=== PATIENT | female | born 1985 | race Caucasian/White ===

== ENCOUNTER 2017-10-29 20:13 | Emergency (ER) | payer OTHER ==
[~2017-10-29] VITALS: Ht 162.6 cm; Wt 63.5 kg
[~2017-10-29 20:13] MED LIST: BIRTH CONTROL PILLS; CEPH500 PO; HYDACE5 PO; OXYACE5T PO; PROM25 PO; Percocet 5-3251 EACH PO; SUCR1 PO; SULTRIDS PO; Sudogest60 MG PO; Veetids 500500 MG PO; Zofran Odt8 MG SL
[2017-10-29 21:15] LABS: BASOPHILS ABSOLUTE AUTO 0.05 K/mm3 (0.00-0.23); BASOPHILS PERCENT AUTO 1 % (0-2); EOSINOPHILS ABSOLUTE AUTO 0.08 K/mm3 (0.00-0.68); EOSINOPHILS PERCENT AUTO 1 % (0-6); Hematocrit 45.7 % (33.0-51.0); Hemoglobin 15.5 g/dL (11.5-16.0); IMMATURE GRAN ABSOLUTE AUTO 0.02 K/mm3 (0.00-0.10); IMMATURE GRAN PERCENT AUTO 0 % (0-1); LYMPHOCYTES ABSOLUTE AUTO 2.11 K/mm3 (0.84-5.20); LYMPHOCYTES PERCENT AUTO 22 % (21-46); MONOCYTES PERCENT AUTO 4 % (4-13); Mean Corpuscular HGB 31.6 pg (26.0-34.0); Mean Corpuscular HGB Conc 33.9 g/dL (31.5-36.5); Mean Corpuscular Volume 93 fL (80-100); Mean Platelet Volume 10.3 fL (9.1-12.4); NEUTROPHILS ABSOLUTE AUTO 7.15 K/mm3 (1.96-9.15); NEUTROPHILS PERCENT AUTO 73 % (41-73); Platelet Count 289 K/mm3 (150-400); RDW Coefficient Variation 12.6 % (11.7-14.2); RDW Standard Deviation 43.3 fL (35.1-46.3); Red Blood Cell Count 4.91 M/mm3 (3.80-5.20); White Blood Cell Count 9.81 K/mm3 (4.00-11.30)
[2017-10-29 21:50] LABS: Alanine Aminotransfer (ALT/SGP 19 U/L (12-78); Albumin, Blood 4.3 g/dL (3.4-5.0); Albumin/Globulin Ratio 1.2 (0.8-1.8); Alk Phos 64 U/L (50-136); Anion Gap 7 mmol/L (6-16); Aspartate Aminotrans (AST/SGOT 10 U/L (12-37); Bilirubin, Total 0.2 mg/dL (0.1-1.0); Blood Urea Nitrogen 13 mg/dL (8-24); Bun/Creatinine Ratio 16.9 (12.0-20.0); CO2, Blood 27 mmol/L (21-32); Calcium, Blood 9.5 mg/dL (8.5-10.1); Chloride, Blood 105 mmol/L (98-108); Creatinine, Blood 0.77 mg/dL (0.40-1.00); Globulin, Blood 3.7 g/dL (2.2-4.0); Glomerular Filtration Rate >60 (60-); Glucose, Blood 88 mg/dL (70-99); Potassium, Blood 3.7 mmol/L (3.5-5.5); Sodium, Blood 139 mmol/L (136-145)
[2017-10-29 23:15] LABS: Source, Urine Clean Catch
[2017-10-29 23:21] LABS: Bilirubin, Urine Neg (Neg); Blood, Urine Neg (Neg); Glucose Qualitative, Urine Neg (Neg); Ketones, Urine 2+ (Neg); Leukocyte Esterase, Urine Neg (Neg); Nitrite, Urine Neg (Neg); Protein, Urine Neg (Neg); Urobilinogen, Urine NORM (Normal)
[2017-10-29 23:22] LABS: Color, Urine Yellow (P-Yellow)
[2017-10-29 23:23] LABS: Appearance, Urine Clear (Clear)
[2017-10-29] MEDS ORDERED: Zofran Odt4 MG PO (23:48)
[2017-10-29] MEDS ORDERED: Naprosyn500 MG PO (23:48)
[2017-12-22] MEDS ORDERED: Nuvaring Vagin1 EACH VG (07:52)
== END 2017-10-30 00:35 | disposition home or self-care (01) ==
LOC: ER 20:13
PROVIDERS: Emergency Medicine
DX: N83.201 Unspecified ovarian cyst, right side (principal); R51 Headache; Z79.899 Other long term (current) drug therapy; F17.210 Nicotine dependence, cigarettes, uncomplicated
CPT/HCPCS: 76830; 76856; 80053; 81003; 81025; 85025; 96361; 96374; 96375; 99284; J1170; J1885; J7030

== ENCOUNTER 2017-12-22 10:45 | Day surgery (SDC) | payer OTHER ==
[~2017-12-22] VITALS: Ht 162.6 cm; Wt 63.0 kg
[~2017-12-22 10:45] MED LIST changes: +Naprosyn500 MG PO; +Nuvaring Vagin1 EACH VG; +Zofran Odt4 MG PO
== END 2017-12-22 11:18 | disposition home or self-care (01) ==
LOC: ORSCSDS 10:45
PROVIDERS: Obstetrics & Gynecology
PROC: 0UB54ZX Excision of Right Fallopian Tube, Percutaneous Endoscopic Approach, Diagnostic (ICD-10-PCS; principal; 2017-12-22 08:30)
PROC: 0DNW4ZZ Release Peritoneum, Percutaneous Endoscopic Approach (ICD-10-PCS; principal; 2017-12-22 08:30)
DX: R10.2 Pelvic and perineal pain (principal); Q50.5 Embryonic cyst of broad ligament; N80.3 Endometriosis of pelvic peritoneum; F17.210 Nicotine dependence, cigarettes, uncomplicated
CPT/HCPCS: 88304; J0171; J0690; J1100; J1885; J2250; J2405; J2710; J3010; J7120

== ENCOUNTER 2018-10-24 14:58 | Emergency (ER) | payer OTHER ==
[~2018-10-24] VITALS: Ht 162.6 cm; Wt 61.2 kg
[2018-10-24] MEDS ORDERED: Augmentin 875-1 EACH PO (16:12)
== END 2018-10-24 16:28 | disposition home or self-care (01) ==
LOC: ER 14:58
DX: I88.9 Nonspecific lymphadenitis, unspecified (principal); Z79.899 Other long term (current) drug therapy; F17.210 Nicotine dependence, cigarettes, uncomplicated
CPT/HCPCS: 87081; 87430; 99283

== ENCOUNTER 2019-07-01 14:00 | Inpatient (IN) | payer OTHER ==
[~2019-07-01] VITALS: Ht 165.1 cm; Wt 82.2 kg
[~2019-07-01 14:00] MED LIST changes: +Augmentin 875-1 EACH PO
[2019-07-01 14:30] LABS: BASOPHILS ABSOLUTE AUTO 0.02 K/mm3 (0.00-0.23); BASOPHILS PERCENT AUTO 0 % (0-2); EOSINOPHILS ABSOLUTE AUTO 0.02 K/mm3 (0.00-0.68); EOSINOPHILS PERCENT AUTO 0 % (0-6); Hematocrit 33.7 % (33.0-51.0); Hemoglobin 10.8 g/dL (11.5-16.0); IMMATURE GRAN PERCENT AUTO 1 % (0-1); LYMPHOCYTES ABSOLUTE AUTO 1.48 K/mm3 (0.84-5.20); LYMPHOCYTES PERCENT AUTO 12 % (21-46); MONOCYTES PERCENT AUTO 6 % (4-13); Mean Corpuscular HGB 27.8 pg (26.0-34.0); Mean Corpuscular Volume 87 fL (80-100); NEUTROPHILS ABSOLUTE AUTO 9.61 K/mm3 (1.96-9.15); NEUTROPHILS PERCENT AUTO 81 % (41-73); Platelet Count 171 K/mm3 (150-400); RDW Coefficient Variation 13.4 % (11.7-14.2); RDW Standard Deviation 41.5 fL (35.1-46.3); Red Blood Cell Count 3.89 M/mm3 (3.80-5.20); White Blood Cell Count 11.93 K/mm3 (4.00-11.30)
[2019-07-01] MEDS ORDERED: PRENATAL 19 TA1 EACH PO (14:30)
--- NOTE | 2019-07-01 15:17 | NUR ---
Patient and significant other gave student nurse permission to observe care on 07/01/2019.
--- NOTE | 2019-07-02 10:04 | NUR ---
PT RECOVERED, MEDICATED WITH TORADOL, AMBULATORY, SHOWERED, FIRST VOID. INDEPENDENT IN ROOM AND CARING FOR . REPORT GIVEN TO BRITTANY FORREST WHO IS ASSUMING CARE OF PATIENT AND NB.
--- NOTE | 2019-07-02 15:12 | NUR ---
ASSIST MOM REPORTS THAT IS GOING FINE. DISCUSSED AND NEW BEGINNINGS BOOK
[2019-07-03 05:27] LABS: BASOPHILS ABSOLUTE AUTO 0.03 K/mm3 (0.00-0.23); BASOPHILS PERCENT AUTO 0 % (0-2); EOSINOPHILS ABSOLUTE AUTO 0.09 K/mm3 (0.00-0.68); EOSINOPHILS PERCENT AUTO 1 % (0-6); Hematocrit 29.6 % (33.0-51.0); Hemoglobin 9.6 g/dL (11.5-16.0); IMMATURE GRAN ABSOLUTE AUTO 0.08 K/mm3 (0.00-0.10); IMMATURE GRAN PERCENT AUTO 1 % (0-1); LYMPHOCYTES ABSOLUTE AUTO 2.46 K/mm3 (0.84-5.20); LYMPHOCYTES PERCENT AUTO 19 % (21-46); MONOCYTES PERCENT AUTO 5 % (4-13); Mean Corpuscular HGB 28.7 pg (26.0-34.0); Mean Corpuscular HGB Conc 32.4 g/dL (31.5-36.5); Mean Corpuscular Volume 89 fL (80-100); NEUTROPHILS ABSOLUTE AUTO 9.87 K/mm3 (1.96-9.15); NEUTROPHILS PERCENT AUTO 75 % (41-73); Platelet Count 155 K/mm3 (150-400); RDW Coefficient Variation 13.7 % (11.7-14.2); RDW Standard Deviation 43.9 fL (35.1-46.3); Red Blood Cell Count 3.34 M/mm3 (3.80-5.20); White Blood Cell Count 13.23 K/mm3 (4.00-11.30)
--- NOTE | 2019-07-03 14:58 | NUR ---
PT DISCHARGED HOME WITH SO AND NB. DISCHARGE INSTRUCTIONS REVIEWED WITH PT AND SO, BOTH VERBALIZED UNDERSTANDING AND DENY ANY FURTHER QUESTIONS OR CONCERNS. PT AMBULATORY TO CAR. PRESCRIPTION FOR IBUPROFEN GIVEN.
== END 2019-07-03 12:07 | disposition home or self-care (01) | DRG 807 ==
LOC: OBS 14:00 → BC 14:08 → OBS 14:16 → BC 14:18
PROVIDERS: ADMIT Nurse Practitioner Obstetrics & Gynecology
PROC: 10E0XZZ Delivery of Products of Conception, External Approach (ICD-10-PCS; principal; 2019-07-02)
PROC: 3E0P7VZ Introduction of Hormone into Female Reproductive, Via Natural or Artificial Opening (ICD-10-PCS; 2019-07-02)
PROC: 3E0R3BZ Introduction of Anesthetic Agent into Spinal Canal, Percutaneous Approach (ICD-10-PCS; 2019-07-02)
DX: O80 Encounter for full-term uncomplicated delivery (principal); Z37.0 Single live birth; Z3A.39 39 weeks gestation of pregnancy
CPT/HCPCS: 36415; 85025; 86850; 86900; 86901; J1885; J2001; J2210; J2405; J2590; J3010; J7120

== ENCOUNTER 2020-07-27 06:19 | Day surgery (SDC) | payer OTHER ==
[~2020-07-27] VITALS: Ht 165.1 cm; Wt 74.1 kg
[~2020-07-27 06:19] MED LIST changes: +DOCU100 PO; +IBUP200 PO; +Milk Of Ma400 MG/5 M PO; +PRENATAL 19 TA1 EACH PO; +SENN187 PO; +SIME80CH PO
--- NOTE | 2020-07-27 07:52 | NUR ---
07/27/20 0751 Lynne Sweeney ABDOMINAL AREA PREPPED BY [email or web address] W/ DURAPREP CYNTHIA AREA PREPPED BY [email or web address] W/ BETADINE SOLUTION
== END 2020-07-27 09:35 | disposition home or self-care (01) ==
LOC: ORSCSDS 06:19
DX: N80.3 Endometriosis of pelvic peritoneum (principal); R10.2 Pelvic and perineal pain; K66.0 Peritoneal adhesions (postprocedural) (postinfection); N83.12 Corpus luteum cyst of left ovary; Z90.710 Acquired absence of both cervix and uterus; F17.210 Nicotine dependence, cigarettes, uncomplicated
CPT/HCPCS: 88305; A9270; J0171; J0690; J1100; J1885; J2250; J2405; J2704; J2710; J3010; J7120

== ENCOUNTER → 2021-06-15 | Outpatient (CLI) | payer OTHER ==
[2021-06-15 19:14] LABS: Source, Urine Clean Catch
[2021-06-15 19:57] LABS: Appearance, Urine Cloudy (Clear); Bilirubin, Urine Neg (Neg); Blood, Urine 1+ (Neg); Color, Urine Yellow (P-Yellow); Glucose Qualitative, Urine Neg (Neg); Ketones, Urine Neg (Neg); Leukocyte Esterase, Urine Neg (Neg); Nitrite, Urine Neg (Neg); Protein, Urine Neg (Neg); Specific Gravity, Urine 1.025 (1.003-1.022); Urobilinogen, Urine NORM (Normal)
[2021-06-15 20:08] LABS: Amorphous Heavy (0-Heavy); Bacteria Few /hpf; Red Blood Cells, Urine Rare /hpf (0-2); Squamous Epithelial Cells Not Seen /hpf (Few); White Blood Cells, Urine Rare /hpf (0-5)
== END ==
LOC: LAB SHORT 19:11 → LAB 19:11
PROVIDERS: Family Medicine
DX: R10.2 Pelvic and perineal pain (principal); G89.29 Other chronic pain
CPT/HCPCS: 81015; 87086

== ENCOUNTER 2023-08-26 12:38 | Emergency (ER) | payer BC, OTHER ==
[~2023-08-26] VITALS: Ht 162.6 cm; Wt 70.3 kg
[~2023-08-26 12:38] MED LIST changes: +Triamcinolone A15 G3 TOP
[2023-08-26 12:50] VITALS: BP 134/96
[2023-08-26 13:33] LABS: BASOPHILS ABSOLUTE AUTO 0.06 K/mm3 (0.00-0.23); BASOPHILS PERCENT AUTO 1 % (0-2); EOSINOPHILS ABSOLUTE AUTO 0.04 K/mm3 (0.00-0.68); EOSINOPHILS PERCENT AUTO 0 % (0-6); Hematocrit 46.7 % (33.0-51.0); Hemoglobin 16.6 g/dL (11.5-16.0); IMMATURE GRAN ABSOLUTE AUTO 0.03 K/mm3 (0.00-0.10); IMMATURE GRAN PERCENT AUTO 0 % (0-1); LYMPHOCYTES PERCENT AUTO 21 % (21-46); MONOCYTES ABSOLUTE AUTO 0.36 K/mm3 (0.16-1.47); MONOCYTES PERCENT AUTO 3 % (4-13); Mean Corpuscular HGB 32.2 pg (26.0-34.0); Mean Corpuscular HGB Conc 35.5 g/dL (31.5-36.5); Mean Corpuscular Volume 91 fL (80-100); Mean Platelet Volume 10.4 fL (9.1-12.4); NEUTROPHILS PERCENT AUTO 74 % (41-73); Platelet Count 294 K/mm3 (150-400); RDW Coefficient Variation 12.4 % (11.7-14.2); RDW Standard Deviation 40.8 fL (35.1-46.3); Red Blood Cell Count 5.16 M/mm3 (3.80-5.20); White Blood Cell Count 10.79 K/mm3 (4.00-11.30)
[2023-08-26 13:56] LABS: Albumin, Blood 4.1 g/dL (3.4-5.0); Albumin/Globulin Ratio 1.2 (0.8-1.8); Bilirubin, Total 0.3 mg/dL (0.1-1.0); Bun/Creatinine Ratio 18.4 (12.0-20.0); Calcium, Blood 9.4 mg/dL (8.5-10.1); Creatinine, Blood 0.71 mg/dL (0.40-1.00); Globulin, Blood 3.5 g/dL (2.2-4.0); Potassium, Blood 3.6 mmol/L (3.5-5.5); Total Protein, Blood 7.6 g/dL (6.4-8.2)
== END 2023-08-26 15:03 | disposition left against medical advice (07) ==
LOC: ER 12:38
PROVIDERS: Student in an Organized Health Care Education/Training Program
DX: R42 Dizziness and giddiness (principal); Z53.21 Procedure and treatment not carried out due to patient leaving prior to being seen by health care provider
CPT/HCPCS: 71046; 80053; 81025; 85025; 93005; 93010; 99282-25

== ENCOUNTER → 2024-10-07 | Outpatient (CLI) | payer BC, OTHER ==
[2024-10-07 10:41] LABS: BASOPHILS ABSOLUTE AUTO 0.05 K/mm3 (0.00-0.23); BASOPHILS PERCENT AUTO 1 % (0-2); EOSINOPHILS ABSOLUTE AUTO 0.12 K/mm3 (0.00-0.68); EOSINOPHILS PERCENT AUTO 2 % (0-6); Hematocrit 40.5 % (33.0-51.0); Hemoglobin 14.2 g/dL (11.5-16.0); IMMATURE GRAN ABSOLUTE AUTO 0.03 K/mm3 (0.00-0.10); IMMATURE GRAN PERCENT AUTO 0 % (0-1); LYMPHOCYTES ABSOLUTE AUTO 1.85 K/mm3 (0.84-5.20); LYMPHOCYTES PERCENT AUTO 24 % (21-46); MONOCYTES ABSOLUTE AUTO 0.38 K/mm3 (0.16-1.47); MONOCYTES PERCENT AUTO 5 % (4-13); Mean Corpuscular HGB 32.6 pg (26.0-34.0); Mean Corpuscular HGB Conc 35.1 g/dL (31.5-36.5); Mean Corpuscular Volume 93 fL (80-100); Mean Platelet Volume 11.1 fL (9.1-12.4); NEUTROPHILS ABSOLUTE AUTO 5.44 K/mm3 (1.96-9.15); NEUTROPHILS PERCENT AUTO 69 % (41-73); Platelet Count 319 K/mm3 (150-400); RDW Coefficient Variation 11.8 % (11.7-14.2); RDW Standard Deviation 40.6 fL (35.1-46.3); Red Blood Cell Count 4.36 M/mm3 (3.80-5.20); White Blood Cell Count 7.87 K/mm3 (4.00-11.30)
[2024-10-07 10:49] LABS: Alanine Aminotransfer (ALT/SGP 15 U/L (12-78); Albumin/Globulin Ratio 1.2 (0.8-1.8); Alk Phos 64 U/L (50-136); Anion Gap 11 mmol/L (3-11); Aspartate Aminotrans (AST/SGOT 11 U/L (12-37); Bilirubin, Total 0.4 mg/dL (0.1-1.0); Blood Urea Nitrogen 18 mg/dL (8-24); Bun/Creatinine Ratio 23.7 (12.0-20.0); CHOL/HDL RATIO 3.9; CO2, Blood 23 mmol/L (21-32); Calcium, Blood 9.5 mg/dL (8.5-10.1); Chloride, Blood 112 mmol/L (98-108); Cholesterol 167 mg/dL (50-200); Creatinine, Blood 0.76 mg/dL (0.40-1.00); Globulin, Blood 3.2 g/dL (2.2-4.0); Glomerular Filtration Rate 102 (60-); Glucose, Blood 97 mg/dL (70-99); HDL Cholesterol 43 mg/dL (>39); LDL/HDL RATIO 2.4; Low Density Lipoprotein Chol 102 mg/dL (0-110); Sodium, Blood 142 mmol/L (136-145); Total Protein, Blood 7.2 g/dL (6.4-8.2); Triglycerides 109 mg/dL (30-140); Very Low Density Lipoprot Chol 21 mg/dL (6-28)
[2024-10-08 19:01] LABS: ESTRADIOL BY IMMUNOASSAY 158 pg/mL
== END ==
LOC: LAB SHORT 08:22 → LAB 08:22
PROVIDERS: Student in an Organized Health Care Education/Training Program
DX: Z00.00 Encounter for general adult medical examination without abnormal findings (principal); Z91.89 Other specified personal risk factors, not elsewhere classified; N95.1 Menopausal and female climacteric states
CPT/HCPCS: 80053; 80061; 82670; 83036; 84144; 84443; 85025